=== PATIENT | female | born 1955 | race Caucasian/White ===

== ENCOUNTER → 2016-12-18 | Outpatient (CLI) | payer BC ==
[~2016-12-18] MED LIST: ASPIRIN81 M1 PO; BACTRIM DS 8001 TA1 PO; BRILINTA90 M1 PO; CARVEDILOL6.25 MG PO; CLARITIN10 MG PO; CRESTOR10 M1 PO; CYCLOBENZAPRINE10 MG PO; FLEXERIL10 MG PO; HYDROCODONE BIT1 T11 PO; HYDROXYZINE HYD25 MG PO; HYDROXYZINE HYD50 MG PO; LISINOPRIL HCTZ1 TAB PO; LISINOPRIL-HCTZ 20-2; MEDROL DOSEPAK4 MG PO; METFORMIN HYD1000 MG PO; MOTRIN800 MG PO; NAPROXEN500 MG PO; PRAVACHOL20 MG PO; PYRIDIUM200 MG PO; TOUJEO300 U/ML SC; [UNRECOGNIZED DRUG - SUPPLY]
--- NOTE | ~2016-12-18 | ST ---
[place], [place] EXERCISE STRESS TEST REPORT NAME: TWIN GRAYSON UNIT #: [id number] ROOM: DOCTOR: RIGOBERTO DUNLAP DO BIRTHDATE: [birth year] DOS: 12/18/2016 This dictation is going to be under Dr. Werner. INDICATION FOR STRESS TEST: 1. Shortness of breath and atypical chest pain along with an abnormal EKG. 2. The stress test is a pharmacological stress test and the patient was given Lexiscan 0.4 mg over 10 seconds and this was followed by nuclear injection at 40 seconds followed by 2 minutes of recovery and the test was terminated due to completion. 1. Performance. Baseline heart rate was 55, blood pressure is 112/62. Maximum heart rate was 78 and blood pressure was 128/54. EKG response. The baseline EKG showed inverted T waves at V1 through V4 and with poor R-wave progression. The rhythm was sinus bradycardia and stress EKG, there were no changes. 2. Clinical response. Nausea. Interpretation is negative Lexiscan stress test. We will wait for Cardiolite images for full record. TIME: 11:07. RIGOBERTO DUNLAP DO RONNY WERNER MD CM:STRESS:EXERCISE STRESS TEST REPORT [id number] RIGOBERTO DUNLAP DO
--- NOTE | ~2016-12-18 | ST ---
[place], [place] EXERCISE STRESS TEST REPORT NAME: TWIN GRAYSON UNIT #: [id number] ROOM: DOCTOR: RONNY WERNER MD BIRTHDATE: [birth year] DOS: ADDENDUM This is an addendum to the patient's stress test done by Dr. Rocha. I agree with the dictation. RONNY WERNER MD CM:STRESS:EXERCISE STRESS TEST REPORT [id number] RONNY WERNER MD
== END | disposition home or self-care (01) ==
LOC: CARD 02:50
DX: R94.31 Abnormal electrocardiogram [ECG] [EKG] (principal); R06.02 Shortness of breath; R07.89 Other chest pain

== ENCOUNTER 2017-06-27 21:04 | Inpatient (IN) | payer BC ==
[~2017-06-27] VITALS: Ht 165.1 cm; Wt 113.0 kg
--- NOTE | ~2017-06-27 | EKG ---
[place], [place] ELECTROCARDIOGRAM REPORT NAME: TWIN GRAYSON UNIT #: [id number] ROOM: 506 DOCTOR: RONNY WERNER MD BIRTHDATE: [birth year] DOS: 06/27/2017 TIME: 21:58:18 RATE AND RHYTHM: Normal sinus rhythm at 69 beats per minute. TX interval 140 milliseconds, QRS duration 120 milliseconds, corrected QT interval 450 milliseconds, QRS axis 25. IMPRESSION: Normal sinus rhythm. Low voltage in extremity leads, otherwise is a borderline EKG. RONNY WERNER MD CM:EKGRPT:ELECTROCARDIOGRAM REPORT [id number] RONNY WERNER MD
[2017-06-27 21:13] VITALS: BP 128/45
[2017-06-27] MEDS ORDERED: LISINOPRIL HCTZ1 TA1 PO (21:15)
[2017-06-27] MEDS ORDERED: METFORMIN1000 MG PO (21:15)
[2017-06-27] MEDS ORDERED: PRAVACHOL40 MG PO (21:16)
[2017-06-27] MEDS ORDERED: NITROSTAT0.4 MG SL (21:16)
[2017-06-27] MEDS ORDERED: COREG6.25 MG PO (21:16)
[2017-06-27] MEDS ORDERED: ASPIRIN CHEWABL81 MG PO (21:17)
[2017-06-27] MEDS ORDERED: HYDR25T PO (21:17)
[2017-06-27] MEDS ORDERED: SPIRIVA18 MCG PO (21:18)
[2017-06-27] MEDS ORDERED: PROAIR HFA8.5 GM INH (21:18)
[2017-06-27] MEDS ORDERED: ADVAIR 250/501 EA INH (21:18)
[2017-06-27] MEDS ORDERED: NASONEX0.05 MG/AC NAS (21:19)
[2017-06-27 22:24] LABS: ALBUMIN 3.3 gm/dl (3.1-4.5); ALKALINE PHOSPHATASE 71 U/L (45-117); BILIRUBIN, TOTAL 0.6 mg/dl (0.2-1.0); BUN 5 mg/dl (7-24); CARBON DIOXIDE 28 mmol/L (21-32); CHLORIDE 104 mmol/L (98-107); EST GLOM FILT AFRICAN AMERICAN > 60 ml/min; GLUCOSE 264 mg/dL (65-99); POTASSIUM 4.3 mmol/L (3.5-5.1); SGOT/AST 34 IU/L (3-35); SGPT/ALT 36 U/L (12-78); SODIUM 137 mmol/L (136-145); TOTAL PROTEIN 7.2 gm/dL (6.4-8.2)
[2017-06-27 22:28] LABS: TROPONIN I 0.054 ng/ml (<0.045)
[2017-06-27 22:50] VITALS: BP 130/88
[2017-06-27 22:54] LABS: BASO # 0.1 10*3/uL (0.0-0.1); BASO % 0.4 % (0.0-1.0); EOS # 0.2 10*3/uL (0.0-0.4); EOS % 1.4 % (1.0-4.0); HEMATOCRIT 45.7 % (37.0-47.0); HEMOGLOBIN 14.8 g/dl (12.0-16.0); IG # 0.1 10*3/uL (0.0-0.1); LYMPH # 2.1 10*3/uL (1.3-4.4); MEAN CELL VOLUME 94.6 fl (81.0-99.0); MEAN CORPUSCULAR HGB 30.6 pg (27.0-31.0); MEAN CORPUSCULAR HGB CONC 32.4 g/dl (33.0-37.0); MEAN PLATELET VOLUME 11.5 fl (9.6-12.3); MONO # 0.8 10*3/uL (0.1-1.0); MONO % 5.1 % (3.0-9.0); NEUT # 12.6 10*3/uL (2.3-7.9); NEUT % 79.6 % (47.0-73.0); PLATELET COUNT AUTOMATED 190 10*3/uL (130-400); RED BLOOD COUNT 4.83 10*6/uL (4.10-5.10); RED CELL DISTRI WIDTH 13.2 % (0-14.5); WHITE BLOOD COUNT 15.9 10*3/uL (4.8-10.8)
[2017-06-28] VITALS: BP 147/62
[2017-06-28 00:51] VITALS: BP 147/62
[2017-06-28 01:00] VITALS: BP 147/62
[2017-06-28 06:10] LABS: BASO % 0.2 % (0.0-1.0); EOS % 0.4 % (1.0-4.0); HEMATOCRIT 43.3 % (37.0-47.0); HEMOGLOBIN 14.4 g/dl (12.0-16.0); IG # 0.1 10*3/uL (0.0-0.1); LYMPH # 1.1 10*3/uL (1.3-4.4); LYMPH % 12.4 % (27.0-41.0); MEAN CELL VOLUME 93.9 fl (81.0-99.0); MEAN CORPUSCULAR HGB 31.2 pg (27.0-31.0); MEAN CORPUSCULAR HGB CONC 33.3 g/dl (33.0-37.0); MEAN PLATELET VOLUME 11.1 fl (9.6-12.3); MONO # 0.1 10*3/uL (0.1-1.0); MONO % 1.5 % (3.0-9.0); NEUT # 7.8 10*3/uL (2.3-7.9); NEUT % 84.8 % (47.0-73.0); PLATELET COUNT AUTOMATED 168 10*3/uL (130-400); RED BLOOD COUNT 4.61 10*6/uL (4.10-5.10); RED CELL DISTRI WIDTH 13.2 % (0-14.5); WHITE BLOOD COUNT 9.2 10*3/uL (4.8-10.8)
[2017-06-28 06:17] LABS: HEMOGLOBIN A1c 8.7 % (4.8-5.6)
[2017-06-28 06:32] LABS: ALBUMIN 3.2 gm/dl (3.1-4.5); ALKALINE PHOSPHATASE 68 U/L (45-117); BILIRUBIN, TOTAL 0.5 mg/dl (0.2-1.0); BUN 5 mg/dl (7-24); CARBON DIOXIDE 26 mmol/L (21-32); CHLORIDE 103 mmol/L (98-107); CHOLESTEROL 181 mg/dL (<200); EST GLOM FILT AFRICAN AMERICAN > 60 ml/min; FREE T4 1.03 ng/dl (0.76-1.46); GLUCOSE 264 mg/dL (65-99); HDL CHOLESTEROL 38 mg/dl (40-60); LDL CHOLESTEROL 97 mg/dL (9-159); POTASSIUM 4.2 mmol/L (3.5-5.1); SGOT/AST 26 IU/L (3-35); SGPT/ALT 32 U/L (12-78); SODIUM 137 mmol/L (136-145); TOTAL PROTEIN 7.1 gm/dL (6.4-8.2); TRIGLYCERIDES 231 mg/dl (<150); VLDL CHOLESTEROL 46 mg/dL (6-40)
[2017-06-28 06:35] LABS: PROTHROMBIN TIME 10.7 SECONDS (9.0-12.4)
[2017-06-28 06:37] LABS: THYROID STIM HORMONE (HS) 0.613 uIU/ml (0.358-4.75)
[2017-06-28 07:06] LABS: FOLIC ACID 10.38 ng/mL (>5.38); VITAMIN D, 25-HYDROXY 19.8 ng/mL (30-100)
[2017-06-28 08:00] VITALS: BP 126/54
== END 2017-06-28 11:42 | disposition left against medical advice (07) | DRG 918 ==
LOC: ED 21:04 → 5E 23:38
PROVIDERS: Emergency Medicine; Internal Medicine
DX: T59.891A Toxic effect of other specified gases, fumes and vapors, accidental (unintentional), initial encounter (principal); J68.0 Bronchitis and pneumonitis due to chemicals, gases, fumes and vapors; R65.10 Systemic inflammatory response syndrome (SIRS) of non-infectious origin without acute organ dysfunction; J44.1 Chronic obstructive pulmonary disease with (acute) exacerbation; I10 Essential (primary) hypertension; E78.00 Pure hypercholesterolemia, unspecified; I25.10 Atherosclerotic heart disease of native coronary artery without angina pectoris; E78.5 Hyperlipidemia, unspecified; Z53.21 Procedure and treatment not carried out due to patient leaving prior to being seen by health care provider; E11.9 Type 2 diabetes mellitus without complications; F17.200 Nicotine dependence, unspecified, uncomplicated; T54.91XA Toxic effect of unspecified corrosive substance, accidental (unintentional), initial encounter; Z95.818 Presence of other cardiac implants and grafts; Z79.82 Long term (current) use of aspirin; Z79.84 Long term (current) use of oral hypoglycemic drugs; Z79.899 Other long term (current) drug therapy; Z87.440 Personal history of urinary (tract) infections; Z90.49 Acquired absence of other specified parts of digestive tract; Z82.3 Family history of stroke; Z83.3 Family history of diabetes mellitus; Z82.49 Family history of ischemic heart disease and other diseases of the circulatory system; Y92.002 Bathroom of unspecified non-institutional (private) residence as the place of occurrence of the external cause

== ENCOUNTER → 2017-07-31 | Outpatient (CLI) | payer BC ==
[~2017-07-31] MED LIST changes: +ADVAIR 250/501 EA INH; +ASPIRIN CHEWABL81 MG PO; +ATIVAN1 MG PO; +COREG6.25 MG PO; +HYDR25T PO; +HYDROXYZINE HCL25 M1 PO; +LISINOPRIL HCTZ1 TA1 PO; +METFORMIN1000 MG PO; +NASONEX0.05 MG/AC NAS; +NITROSTAT0.4 MG SL; +PRAVACHOL40 MG PO; +PROAIR HFA8.5 GM INH; +SPIRIVA18 MCG PO; +TOUJEO SOL300 UNIT/1 SQ
--- NOTE | 2017-07-31 10:00 | NUR ---
INFORMED CONSENT OBTAINED FOR LEXISCAN NUCLEAR STRESS TEST WITH DR. WERNER. RESTING EKG NSR WITH A RESTING HR OF 62 WITH BP OF 118/64. HAS T WAVE INVERSIONS IN V1-V5. LUNGS CLEAR WITH SPO2 OF 95% ON ROOM AIR. PT COMPLETED A 1:00 LEXISCAN PROTOCOL RECEIVING LEXISCAN 0.4 MG IV OVER 10 SECONDS. HAD NO CHANGES IN EKG. DID C/O FEELING LIGHTHEADED, SHORT OF BREATH, WARM AND CHEST DISCOMFORT THAT WAS RELIEVED IN RECOVERY. HAD A PEAK HR OF 81 WITH BP OF 110/50. LAST RECOVERY HR OF 74 WITH BP OF 114/58. AWAITING SCANNING IN STABLE CONDITION WITH .
== END | disposition home or self-care (01) ==
LOC: CARD 07-30 02:57
DX: I25.10 Atherosclerotic heart disease of native coronary artery without angina pectoris (principal); R07.89 Other chest pain; R06.02 Shortness of breath

== ENCOUNTER 2017-08-05 09:04 | Emergency (ER) | payer BC ==
[~2017-08-05] VITALS: Ht 165.1 cm; Wt 111.1 kg
--- NOTE | ~2017-08-05 | EKG ---
[place], [place] ELECTROCARDIOGRAM REPORT NAME: TWIN GRAYSON UNIT #: [id number] ROOM: DOCTOR: RONNY WERNER MD BIRTHDATE: [birth year] DOS: 08/05/2017 TIME: 09:24:06. RATE AND RHYTHM: Sinus rhythm at 73 beats per minute. GA interval 138 milliseconds, QRS duration 140 milliseconds, corrected QT interval is 468 milliseconds, Q axis is 15. IMPRESSION: 1. Normal sinus rhythm. 2. Atrial premature complexes. 3. Low voltage in the extremity leads. 4. Abnormal R-wave progression. Clinical correlation is needed. It is an abnormal EKG. RONNY WERNER MD CM:EKGRPT:ELECTROCARDIOGRAM REPORT [id number] RONNY WERNER MD
[2017-08-05 09:39] LABS: BASO % 0.3 % (0.0-1.0); EOS # 0.3 10*3/uL (0.0-0.4); EOS % 2.9 % (1.0-4.0); HEMATOCRIT 44.5 % (37.0-47.0); HEMOGLOBIN 14.9 g/dl (12.0-16.0); LYMPH # 1.9 10*3/uL (1.3-4.4); LYMPH % 20.1 % (27.0-41.0); MEAN CELL VOLUME 91.6 fl (81.0-99.0); MEAN CORPUSCULAR HGB 30.7 pg (27.0-31.0); MEAN CORPUSCULAR HGB CONC 33.5 g/dl (33.0-37.0); MEAN PLATELET VOLUME 11.3 fl (9.6-12.3); MONO # 0.6 10*3/uL (0.1-1.0); MONO % 5.9 % (3.0-9.0); NEUT # 6.8 10*3/uL (2.3-7.9); NEUT % 70.3 % (47.0-73.0); PLATELET COUNT AUTOMATED 171 10*3/uL (130-400); RED BLOOD COUNT 4.86 10*6/uL (4.10-5.10); RED CELL DISTRI WIDTH 12.7 % (0-14.5); WHITE BLOOD COUNT 9.7 10*3/uL (4.8-10.8)
[2017-08-05 09:45] LABS: ACT PARTIAL THROMBO TIME 25.9 SECONDS (20.8-31.5)
[2017-08-05 09:52] LABS: ALBUMIN 3.3 gm/dl (3.1-4.5); ALKALINE PHOSPHATASE 77 U/L (45-117); BUN 6 mg/dl (7-24); CHLORIDE 103 mmol/L (98-107); CPK 43 U/L (26-192); CREATININE 0.81 mg/dL (0.55-1.02); LIPASE 146 U/L (73-393); MAGNESIUM 1.6 mg/dL (1.5-2.1); POTASSIUM 3.8 mmol/L (3.5-5.1); SGOT/AST 26 IU/L (3-35); SGPT/ALT 36 U/L (12-78); SODIUM 136 mmol/L (136-145); TOTAL PROTEIN 7.5 gm/dL (6.4-8.2)
[2017-08-05 09:59] LABS: CKMB < 0.5 ng/ml (0.5-3.6); TROPONIN I < 0.015 ng/ml (<0.045)
== END 2017-08-05 10:34 | disposition short-term general hospital (02) ==
LOC: ED 09:04
PROVIDERS: Emergency Medicine
DX: I63.9 Cerebral infarction, unspecified (principal); I25.10 Atherosclerotic heart disease of native coronary artery without angina pectoris; J44.9 Chronic obstructive pulmonary disease, unspecified; E11.9 Type 2 diabetes mellitus without complications; I10 Essential (primary) hypertension; F17.200 Nicotine dependence, unspecified, uncomplicated; E78.5 Hyperlipidemia, unspecified; Z90.49 Acquired absence of other specified parts of digestive tract; Z98.890 Other specified postprocedural states; Z79.899 Other long term (current) drug therapy; Z79.4 Long term (current) use of insulin; Z79.82 Long term (current) use of aspirin

== ENCOUNTER 2018-02-28 11:45 | Inpatient (IN) | payer BC ==
[2018-02-28] VITALS (10 sets, daily range): BP systolic 86–127; BP diastolic 38–91
[~2018-02-28] VITALS: Ht 167.6 cm; Wt 108.5 kg
--- NOTE | ~2018-02-28 | CON ---
[place], [place] REPORT OF CONSULTATION NAME: TWIN GRAYSON UNIT #: [id number] ROOM: 407 DOCTOR: TK BLANCO,JU BIRTHDATE: [birth year] DOS: 03/01/2018 Machelle yousif was called at 0445 on the morning of 03/01/2018. The patient was unresponsive, slightly cyanotic without pulses. The nurses had already started chest compressions and oxygen delivery through an Ambu bag. The nurse reported that the patient suddenly developed bradycardia and almost instantly went into asystole. She had a history of diabetes mellitus. She was a cigarette smoker and obese and last evening, she had an appendicectomy for acute appendicitis. Through the night, she had had some difficulty with breathing and she was using oxygen. There were no complaints of chest pain or shortness of breath prior to the cardiac arrest. On examination, she has a [place] habitus with a large abdomen and moderate obesity. There were no spontaneous respirations and no cardiac activity. personnel monitor showed asystole and no shockable rhythm was detected. External cardiac compressions were continued and multiple doses of epinephrine were given. The examination of the rest of the body, pupils were fixed and dilated. The neck was supple. There was no swelling in the neck and no signs of trauma. The chest was symmetrical, breath sounds equal with hand bag ventilation. The abdomen was obese but no masses were appreciated and the surgical wounds were stable. Extremities, no evidence of injury and no edema. She was intubated using the kaleidoscope with a 7.5 ET tube and CO2 was positive. There was mist in the tube. Breath sounds heard bilaterally. No breath sounds over the epigastrium. Continued cardiac massage, ventilation with an Ambu bag and still no shockable rhythm. Pulses were palpable with compressions. Multiple doses of epinephrine and intravenous fluids. She continued to be in asystole despite all attempts to resuscitate her. After 22 minutes, all attempts were discontinued and the patient was pronounced at 0507 hours. The surgeon was notified and the attending physician, Dr. Macias was notified. Pre-arrest rhythm strips were reviewed. There was a sudden significant bradycardia with evidence for heart block, quickly deteriorated into asystole. Family were advised. JU FREY MD CM:CONSTR:REPORT OF CONSULTATION 0614 03/03/18 0903 interface
--- NOTE | ~2018-02-28 | O ---
[place], [place] OPERATIVE NOTE NAME: TWIN GRAYSON UNIT #: [id number] ROOM: 407 DOCTOR: WERO LANCE MD BIRTHDATE: [birth year] DOS: 02/28/2018 PREOPERATIVE DIAGNOSIS: Acute appendicitis. POSTOPERATIVE DIAGNOSIS: Acute appendicitis. PROCEDURE: Laparoscopic appendectomy. SURGEON: Wero Lance MD PERMANENT MOLD SUPERVISOR: ALVINO. ANESTHESIA: General with endotracheal intubation. INDICATIONS: This is a 62-year-old lady who was admitted with history of abdominal pain and was found to have acute appendicitis. It was decided to take the patient to the operating room for the above-mentioned procedure. The procedure and its complications were explained to the patient in detail preoperatively. Complications that were discussed included but were not limited to bleeding, infection, hematoma/seroma/abscess formation, prolonged postoperative pain and damage to underlying vital structures. She agreed to proceed. DESCRIPTION OF PROCEDURE: After identifying the patient, the patient was brought to the operating suite and laid in the supine position. After induction of general anesthesia, timeout procedure was called and a Hair catheter was inserted into the urinary bladder. The patient's upper extremities were tucked to her side and then the abdomen was prepped and draped in the usual sterile fashion. An incision in a transverse fashion was made below the umbilicus. The skin and the subcutaneous tissue were incised in the line of the incision. The fascia was incised vertically and 2 stay sutures with 0 Vicryl were taken on either side. A 12 mm Monique port was introduced into the peritoneal cavity and a pneumoperitoneum was created. Under direct vision, a left lower quadrant incision of 10 mm and a 5 mm incision was made in the suprapubic region and appropriate size ports were introduced. The appendix was found to be inflamed and adherent to the overlying parietal peritoneum. It was with the help of blunt dissection and from the surrounding structures as well until the appendix was able to be held up with the help of an Endo Daniel forceps. The base of the appendix and the mesoappendix were then stapled across with the help of Endo-MERYL stapler. The appendix was then placed an EndoCatch bag and removed from the peritoneal cavity and sent for histopathological diagnosis. Hemostasis was confirmed and after that the suprapubic and the left lower quadrant ports were removed and there was no bleeding seen. The umbilical port was also removed and with the help of 0 Vicryl, the fascia was approximated with the help of interrupted sutures. All the 3 incisions were approximated after they were infiltrated with 1% lidocaine with 4-0 Vicryl. Dressings were placed. The Hair catheter was removed and the patient was extubated uneventfully and brought back to the recovery room in stable fashion. There were no complications. Blood loss was less than [address] Wero Lance, the attending surgeon, was present throughout the operating case. [place], [place] OPERATIVE NOTE NAME: TWIN GRAYSON UNIT #: [id number] ROOM: [facility] DOCTOR: WERO LANCE MD BIRTHDATE: [birth year] Wero Lance MD CM:OPRECORD:OPERATIVE NOTE 22 33 WERO LANCE MD 02/28/[id number] interface
[~2018-02-28 11:45] MED LIST changes: -LISINOPRIL HCTZ1 TA1 PO; +MOMETASONE FURO17 GM NAS; -NASONEX0.05 MG/AC NAS; +ZESTRIL10 MG PO
[2018-02-28 12:19] LABS: HEMATOCRIT 39.9 % (37.0-47.0); HEMOGLOBIN 13.3 g/dl (12.0-16.0); MEAN CELL VOLUME 87.1 fl (81.0-99.0); MEAN CORPUSCULAR HGB CONC 33.3 g/dl (33.0-37.0); MEAN PLATELET VOLUME 10.7 fl (9.6-12.3); PLATELET COUNT AUTOMATED 204 10*3/uL (130-400); RED BLOOD COUNT 4.58 10*6/uL (4.10-5.10); RED CELL DISTRI WIDTH 14.1 % (0-14.5)
[2018-02-28 12:35] LABS: ALKALINE PHOSPHATASE 68 U/L (45-117); BUN 7 mg/dl (7-24); CHLORIDE 99 mmol/L (98-107); CREATININE 0.88 mg/dL (0.55-1.02); LIPASE 98 U/L (73-393); POTASSIUM 3.5 mmol/L (3.5-5.1); SGOT/AST 8 IU/L (3-35); SGPT/ALT 12 U/L (12-78); SODIUM 133 mmol/L (136-145); TOTAL PROTEIN 7.4 gm/dL (6.4-8.2)
[2018-02-28 12:38] LABS: PLATELET SUFFICIENCY NORMAL (NORMAL); TOTAL CELLS COUNTED 100 #CELLS
[2018-02-28 12:56] LABS: BILIRUBIN NEGATIVE (NEGATIVE); BLOOD TRACE-INTACT (NEGATIVE); CLARITY CLOUDY (CLEAR); COLOR YELLOW (YELLOW); GLUCOSE NEGATIVE (NEGATIVE); KETONE NEGATIVE (NEGATIVE); LEUKO ESTERASE 3+ (NEGATIVE); NITRITE NEGATIVE (NEGATIVE); PH 6.5 (5.0-9.0)
[2018-02-28 13:07] LABS: BACTERIA TRACE; MUCOUS TRACE; WBC TNTC wbc/hpf (0-5)
[2018-02-28] MEDS ORDERED: VITAMIN D350000 UNIT PO (15:43)
[2018-02-28] MEDS ORDERED: VITAMIN B-12500 MC3 SL (15:45)
[2018-02-28] MEDS ORDERED: HYDROCHLOROTH12.5 M3 PO (15:53)
[2018-02-28] MEDS ORDERED: NOVOLOG FL100 UNIT/1 SQ (15:55)
[2018-03-01] VITALS: BP 135/78
[2018-03-01 01:20] VITALS: BP 135/78
== END 2018-03-01 05:07 | disposition expired | DRG 342 ==
LOC: ED 11:45 → EDHOLD 14:47 → 4E 14:55
PROVIDERS: Physician Assistant
PROC: 0DTJ4ZZ Resection of Appendix, Percutaneous Endoscopic Approach (ICD-10-PCS; principal; 2018-02-28)
DX: K35.80 Unspecified acute appendicitis (principal); E87.1 Hypo-osmolality and hyponatremia; E44.0 Moderate protein-calorie malnutrition; I25.10 Atherosclerotic heart disease of native coronary artery without angina pectoris; J44.9 Chronic obstructive pulmonary disease, unspecified; Z77.098 Contact with and (suspected) exposure to other hazardous, chiefly nonmedicinal, chemicals; E11.65 Type 2 diabetes mellitus with hyperglycemia; N39.0 Urinary tract infection, site not specified; D72.829 Elevated white blood cell count, unspecified; E78.5 Hyperlipidemia, unspecified; Z82.49 Family history of ischemic heart disease and other diseases of the circulatory system; Z82.3 Family history of stroke; Z90.49 Acquired absence of other specified parts of digestive tract; Z86.73 Personal history of transient ischemic attack (TIA), and cerebral infarction without residual deficits; Z79.899 Other long term (current) drug therapy; Z79.82 Long term (current) use of aspirin; Z72.0 Tobacco use; Z71.6 Tobacco abuse counseling; Z95.5 Presence of coronary angioplasty implant and graft; Z68.38 Body mass index [BMI] 38.0-38.9, adult